=== PATIENT | male | born 1955 | race Caucasian/White ===

== ENCOUNTER 2024-10-20 18:23 | Emergency (ER) | payer OTHER, SELFPAY ==
[2024-10-20 18:26] VITALS: BP 158/90
--- NOTE | 2024-10-20 19:42 | ED.GENMED ---
History of Present Illness
General
Chief Complaint: Fall
Source: patient
Time Seen by Provider: 10/20/24 19:33
History of Present Illness
History of Present Illness:
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
concert, completed the concert but was having posterior left rib/back pain and decided to come to the ER for further evaluation. No other injuries were sustained other than some minor bruising to the left forearm and right knee. Patient denies any
head injury, LOC, vomiting, visual changes or any other concerns. Patient denies any use of anticoagulants. He did take 3 Tylenol prior to arrival with minimal relief. Pain is described to be somewhat spasmodic, worse with movement or deep
inspiration.
Past History
Past History
ED Past Medical History: HTN and Other (Kidney stones); Negative Hypercholesterolemia
ED Past Surgical History: None and Urological (Lithotripsy and stent)
Social History
Tobacco: Non-smoker
Alcohol: Occasional
Drug: None
Personal:
Living: with family
Review of Systems
Review of Systems
All Other Systems: ROS reviewed and negative except as documented in HPI and ROS
Phy Exam
Physical Exam
Physical Exam:
GENERAL: Alert , in no apparent distress at rest but appears uncomfortable with movement
HEAD: Normocephalic atraumatic
EYE: Clear conjunctiva
NECK: Supple, no midline tenderness
ENT: o/p clr, mmm.
CARDIAC: Regular rate and rhythm .
LUNGS: Clear breath sounds bilaterally, no acute respiratory distress, no wheezes/rales/rhonchi
ABDOMEN: Soft, without focal tenderness, no r/g, no cvat
BACK: Tenderness inferior to the scapula and just lateral to the midline over the paraspinal muscles, no focal rib tenderness, no palpable bony step-offs. No ecchymosis
NEUROLOGICAL: Alert and oriented, no focal neuro deficits
SKIN: Warm and dry, skin intact. Small contusion to the proximal left forearm
MUSCULOSKELETAL: No edema, well perfused.
PSYCH: Normal and appropriate interaction.
Scores
Heart Failure Risk
Heart Failure Risk Score: Not Applicable
Heart Score for Chest Pain Patients
STEMI patient?: Not applicable
Withdrawal Assessment of Alcohol
Withdrawal Assessment Completed?: Not applicable
Course
Orders/Labs/Results
Orders:
Orders
10/20/24 18:29
CR Ribs-left 3 Vw W/pa Chest Urgent
Comment:
Reason For Exam: Trauma
10/20/24 19:42
Oxycodone [Roxicodone] 5 mg PO NOW STA
Vital Signs
Initial and Last Documented VS:
Initial Vital Signs
Temp Pulse Resp BP Pulse Ox
98.5 F 70 16 158/90 98
10/20/24 18:26 10/20/24 18:26 10/20/24 18:26 10/20/24 18:26 10/20/24 18:26
Last Documented Vital Signs
Temp Pulse Resp BP Pulse Ox
98.5 F 70 16 158/90 98
10/20/24 18:26 10/20/24 18:26 10/20/24 18:26 10/20/24 18:26 10/20/24 18:26
MDM/Problems Addressed
Differential Diagnosis Includes:
Rib fracture, rib contusion, pneumothorax, visceral injury
MDM/Problems Addressed:
69-year-old male presenting to the ER for evaluation after he excellently fell approximately 4 feet from a stage injuring his left posterolateral back/ribs. Rib series ordered which does not show any acute fracture, pneumothorax/hemothorax.
Patient hemodynamically stable. Pain seems to be spasmodic and I suspect muscular injury to be more likely. Will treat with temporary course of Percocet. Advised NSAIDs for pain control as well. Patient has incentive spirometer at home already
and advised to use of this over the next few days. Stable for discharge home otherwise.
*Radiology
Radiology exam reviewed: preliminary read by ED provider (No rib fracture or pneumothorax)
*Pulse Oximetry
Patient hypoxic: no
*Critical Care Note
Total Time (30-74mins, 75-104mins- exclusive of procedures): Not Applicable
ED Attending Note
-
Portions of this chart may have been created with voice recognition software.� Occasional wrong word or��sound alike� substitutions may have occurred due to the inherent limitations of voice recognition software.
Discharge Plan
Departure
Patient Disposition: Home (Routine Discharge)
Date of Disposition: 10/20/24
Time of Disposition: 19:42
Patient with high blood pressure during this ER visit?: Yes
Discharge Problem:
Accidental fall, Rib pain on left side
Instructions: Rib fracture or bruised rib - ED discharge instructions
Prescriptions:
New
oxycodone-acetaminophen [Percocet] 5-325 mg tablet
1 tab PO Q6HPRN PRN (Reason: pain) Qty: 8 0RF
No Action
verapamil 240 MG tablet extended release
240 mg PO DAILY
oxycodone-acetaminophen 5 MG/325 MG tablet
1 tab PO Q6HPRN PRN (Reason: pain) Qty: 12 0RF
ibuprofen 600 MG tablet
600 mg PO Q6H Qty: 20 0RF
tamsulosin 0.4 MG capsule
0.4 mg PO DAILY Qty: 14 0RF
hydromorphone [Dilaudid] 2 MG tablet
2 mg PO Q4HPRN PRN (Reason: Pain) Qty: 10 0RF
ondansetron HCl 4 MG tablet
4 mg PO Q8HPRN PRN (Reason: Nausea/Vomiting) Qty: 15 0RF
Rx Instructions:
May take 2 tabs as needed
Interventions
Interventions:
*Risk Screen - Suicide Last Done: 10/20/24 20:09
*General Assessment Last Done: 10/20/24 20:00
*Neglect/Abuse Screening Last Done: 10/20/24 20:09
*ED- Fall Risk Assessment Last Done: 10/20/24 20:00
*ED COVID-19 Vaccine History Last Done: 10/20/24 20:00
*Nursing Disposition Last Done: 10/20/24 20:13
ED-Musculoskeletal Assessment Last Done: 10/20/24 20:12
ED- Neurological Assessment Last Done: 10/20/24 20:09
ED-Skin Assessment Last Done: 10/20/24 20:12
Discharge Date and Time
Discharge Date/Time: 10/20/24 20:13
Print Language: SERBIAN
[2024-10-20] MEDS: ROXICODONE 5 MG PO (20:02)
== END 2024-10-20 20:13 | disposition home or self-care (01) ==
LOC: EMR 18:23
PROVIDERS: EMERGENCY PHYSICIAN Emergency Medicine; FAMILY PHYSICIAN Family Medicine
DX: R07.89 Other chest pain (principal); S50.12XA Contusion of left forearm, initial encounter; S80.01XA Contusion of right knee, initial encounter; W17.89XA Other fall from one level to another, initial encounter; Y93.89 Activity, other specified; Y92.89 Other specified places as the place of occurrence of the external cause; K57.92 Diverticulitis of intestine, part unspecified, without perforation or abscess without bleeding; I10 Essential (primary) hypertension; Z87.442 Personal history of urinary calculi
CPT/HCPCS: 99283; 71101

== ENCOUNTER → 2025-02-04 14:58 | Outpatient (REF) | payer OTHER, SELFPAY | LOC: RAD 14:58 | PROVIDERS: ATTENDING PHYSICIAN Family Medicine | DX: M79.605 Pain in left leg (principal); M79.89 Other specified soft tissue disorders | CPT/HCPCS: 93971 ==